=== PATIENT | male | born 1980 | race Hispanic/Latino ===

== ENCOUNTER 2019-03-14 11:58 | Emergency (ER) | payer SELFPAY ==
[2019-03-14 12:27] VITALS: BP 128/93
[2019-03-14 14:25] LABS: Basophils # (Auto) 0.1 K/mm3 (0.0-0.1); Basophils % (Auto) 0.4 % (0.0-1.8); Eosinophils # (Auto) 0.1 K/mm3 (0.0-0.4); Eosinophils % (Auto) 0.3 % (0.0-4.3); Hematocrit 46.6 % (35.5-45.6); Hemoglobin 15.4 gm/dl (11.8-15.2); Lymphocytes # (Auto) 1.9 K/mm3 (1.2-5.4); Lymphocytes % (Auto) 12.9 % (13.4-35.0); Mean Corpuscular HGB Conc 33 % (32-34); Mean Corpuscular Volume 86 fl (84-94); Monocytes # (Auto) 1.1 K/mm3 (0.0-0.8); Monocytes % (Auto) 7.2 % (0.0-7.3); Platelet Count 330 K/mm3 (140-440); Red Blood Count 5.44 M/mm3 (3.65-5.03); Red Cell Distribution Width 13.3 % (13.2-15.2)
[2019-03-14 14:44] LABS: BUN/Creatinine Ratio 13; Blood Urea Nitrogen 14 mg/dL (9-20); Calcium 10.3 mg/dL (8.4-10.2); Hemolysis Index 84
--- NOTE | 2019-03-14 15:17 | Emergency Department Report ---
HPI - General Chief Complaint: Anxiety Time Seen by Provider: 03/14/19 12:15 - HPI HPI: 38-year-old male presents to the emergency department via EMS from the dentist's office after he had a syncopal episode while getting one of his right lower teeth fixed. It is a fractured tooth with some exposed nerve and he was in the process of getting it pulled. The patient suddenly began feeling hot and sweaty, had some brief chest discomfort and then passed out. Since being in the emergency Department the patient is awake, alert, oriented and asymptomatic. He has been taking ibuprofen and using multiple tubes of oral gel for his pain over the past few days. He also says that it has kept him from eating much food or getting nutrients. He is a former smoker. Denies any illicit drug use or alcohol abuse. ED Past Medical Hx - Past Medical History Previous Medical History?: Yes Hx Hypertension: Yes - Surgical History Past Surgical History?: No - Social History Smoking Status: Current Every Day Smoker ED Review of Systems ROS: Stated complaint: SICK Other details as noted in HPI Comment: All other systems reviewed and negative Constitutional: diaphoresis. denies: chills, fever Eyes: denies: eye pain, vision change ENT: dental pain. denies: ear pain, throat pain Respiratory: denies: cough, shortness of breath Cardiovascular: chest pain (resolved), syncope Gastrointestinal: denies: abdominal pain, vomiting Musculoskeletal: denies: back pain, myalgia Neurological: denies: headache Physical Exam - Physical Exam Vital Signs: Vital Signs 03/14/19 12:25 Temperature 97.5 F L Pulse Rate 92 H Respiratory 18 Rate Blood Pressure 128/93 [Right] O2 Sat by Pulse 100 Oximetry Physical Exam: GENERAL: The patient is well-developed well-nourished. HENT: Normocephalic. Atraumatic. Patient has moist mucous membranes. EYES: Extraocular motions are intact. Pupils equal reactive to light bilaterally. No nystagmus. NECK: Supple. Trachea is midline. CHEST/LUNGS: Clear to auscultation. There is no respiratory distress noted. HEART/CARDIOVASCULAR: Regular. There is no tachycardia. There is no murmur. ABDOMEN: There is no abdominal distention. SKIN: Skin is warm and dry. NEURO: The patient is awake, alert, and oriented. The patient is cooperative. The patient has no focal neurologic deficits. Normal speech. Cranial nerves II through XII grossly intact. No pronator drift. No dysmetria. MUSCULOSKELETAL: There is no tenderness or deformity. There is no limitation range of motion. There is no evidence of acute injury. ED Course Vital Signs 03/14/19 12:25 Temperature 97.5 F L Pulse Rate 92 H Respiratory 18 Rate Blood Pressure 128/93 [Right] O2 Sat by Pulse 100 Oximetry ED Medical Decision Making - Lab Data Result diagrams: 03/14/19 14:10 03/14/19 14:10 - EKG Data -: EKG Interpreted by Me EKG shows normal: sinus rhythm, axis, intervals, QRS complexes, ST-T waves Rate: normal - EKG Data When compared to previous EKG there are: previous EKG unavailable Interpretation: normal EKG - Medical Decision Making This patient presents to the emergency department after having some type of a syncopal episode while getting his tooth extracted at the dentist office. Since being in the emergency department, the patient is awake, alert, oriented. He has no focal, motor or sensory deficits and his cranial nerves have been intact. An EKG was obtained that does not show any signs of ST elevation [place], ischemia or dysrhythmia. His labs have been unremarkable as well including CBC, metabolic panel, troponin and TSH level. His vital signs been within normal limits. Since the patient had only one transient episode of this syncope, and has been awake and alert without any deficits in the emergency department, I did not feel that any advanced imaging of the head was necessary at this time. The patient was told to follow-up with his primary care physician and his dentist. He was instructed to utilize the Orajel only as instructed on the medication. He will return to the emergency Department with any worsening of his symptoms or any acute distress. - Differential Diagnosis vasovagal, orthostatic hypotension, dysrhythmia, electrolyte abnormalities Critical Care Time: No Critical care attestation.: If time is entered above; I have spent that time in minutes in the direct care of this critically ill patient, excluding procedure time. ED Disposition Clinical Impression: Syncope Qualifiers: Syncope type: unspecified Qualified Code(s): R55 - Syncope and collapse Disposition: DC-01 TO HOME OR SELFCARE Is pt being admited?: No Condition: Stable Instructions: Syncope (ED) Additional Instructions: Please follow-up with your primary care physician and your dentist. Return to the emergency Department with any return of your symptoms, any further episodes of passing out, or with any acute distress. Referrals: PRIMARY CARE,MD [Primary Care Provider] - 2-3 Days Time of Disposition: 15:17
== END 2019-03-14 15:40 | disposition home or self-care (01) ==
LOC: ED 11:58
DX: R55 Syncope and collapse (principal); I10 Essential (primary) hypertension; F17.200 Nicotine dependence, unspecified, uncomplicated
CPT/HCPCS: 36415; 80048; 84443; 84484; 85025; 93005; 93010